=== PATIENT | female | born 1950 | race Two or more races ===

== ENCOUNTER 2017-03-22 00:54 | Observation (INO) | payer OTHER ==
[2017-03-22 01:21] VITALS: BMI 23.3
--- NOTE | 2017-03-22 01:43 | PDOC ---
History of Present Illness - General History Source: Patient Exam Limitations: No Limitations - History of Present Illness Initial Comments: 03/22/17 01:50 The patient is a 66 year old female with no significant past medical history who presents to the ED for few months of increasing right-sided abdominal pain. Patient describes her pain as a sharp cutting sensation, 10/10, and nonradiating that is exacerbated after eating or drinking. Denies nausea, vomiting, or diarrhea. States her pain has been intermittent since her laparoscopic cholecystectomy in April 2016, but has been progressively getting worse. The patient denies fever, chills, cough, SOB, chest pain, and palpitations. Allergies: NKDA Social History: No alcohol, tobacco, or drug use reported. Past Surgical History: cholecystectomy (04/2016) PCP: Dr. Ximena Mariano <Carrie Ferro - Last Filed: 03/22/17 06:03> - General History Source: Patient <Willy Collazo - Last Filed: 03/26/17 19:34> - General Chief Complaint: Pain, Acute Stated Complaint: ABD PAIN Time Seen by Provider: 03/22/17 01:22 Past History <Carrie Ferro - Last Filed: 03/22/17 06:03> - Immunization History Immunization Up to Date: Yes - Psycho/Social/Smoking Cessation Hx Anxiety: No Suicidal Ideation: No Smoking History: Never smoked Have you smoked in the past 12 months: No Information on smoking cessation initiated: No Hx Alcohol Use: No Drug/Substance Use Hx: No Substance Use Type: None Hx Substance Use Treatment: No <Willy Collazo - Last Filed: 03/26/17 19:34> - Past Medical History Allergies/Adverse Reactions: Allergies Allergy/AdvReac Type Severity Reaction Status Date / Time No Known Allergies Allergy Verified 03/22/17 01:18 Home Medications: Ambulatory Orders Acetaminophen [Tylenol .Regular Strength -] 650 mg PO Q6H PRN #0 tablet Review of Systems - Review of Systems Able to Perform ROS?: Yes Comments:: 03/22/17 01:50 CONSTITUTIONAL: Absent: fever, no chills, no fatigue EYES: Absent: visual changes ENT: Absent: ear pain, no sore throat CARDIOVASCULAR: Absent: chest pain, no palpitations RESPIRATORY: Absent: cough, no SOB GI: +right-sided abdominal pain Absent: no nausea, no vomiting, no constipation, no diarrhea GENITOURINARY: Absent: dysuria, no frequency, no hematuria MUSCULOSKELETAL: Absent: back pain, no arthralgia, no myalgia SKIN: Absent: rash NEURO: Absent: headache <Carrie Ferro - Last Filed: 03/22/17 06:03> *Physical Exam - Vital Signs Last Vital Signs Temp Pulse Resp BP Pulse Ox 98.7 F 75 20 143/75 100 03/22/17 01:18 03/22/17 01:18 03/22/17 01:18 03/22/17 01:18 03/22/17 01:18 - Physical Exam Comments: 03/22/17 01:51 GENERAL: Well-appearing, well-nourished. No apparent distress. HEENT: Normocephalic, atraumatic. PERRL, EOM intact. CARDIOVASCULAR: Normal S1, S2. Regular rate and rhythm. PULMONARY: Clear to auscultation bilaterally. ABDOMEN: Soft, non-distended, right upper quadrant tenderness. +rebound. +guarding. Normoactive bowel sounds. EXTREMITIES: Normal ROM in all four extremities. No gross deformities. SKIN: Warm, dry. No rash NEUROLOGICAL: No focal neurological deficits. <Carrie Ferro - Last Filed: 03/22/17 06:03> - Vital Signs Last Vital Signs Temp Pulse Resp BP Pulse Ox 98.7 F 75 20 143/75 100 03/22/17 01:18 03/22/17 01:18 03/22/17 01:18 03/22/17 01:18 03/22/17 01:18 <Willy Collazo - Last Filed: 03/26/17 19:34> ED Treatment Course - LABORATORY CBC & Chemistry Diagram: 03/22/17 02:01 03/22/17 02:01 - RADIOLOGY Radiograph Interpretation: 03/22/17 05:19 Exam: Contrast-enhanced CT abdomen and pelvis Reviewed by Imaging java [email or web address] application developer: Findings: The lung bases are clear. Pneumobilia is noted in the liver. The patient is status post cholecystectomy. Heterogeneous low attenuation is noted in the hepatic parenchyma along the inferior margins of the gallbladder fossa anteriorly. Several patchy nodular opacities are noted adjacent to the hepatic flexure underlying the gallbladder fossa (see image 56 and 57). Adjacent to these opacities in the hepatic flexure the adjacent rectus muscle is focally thickened with peripherally enhancing hypoattenuating foci seen in the rectus muscle measuring up to approximately, which collectively measure approximate 2 x 1.77 cm in diameter and are consistent with an inflamed or infected process in and adjacent to the rectus muscle. Soft tissue fullness extends from the anterior abdominal wall to the distal stomach and proximal duodenum adjacent to surgical clips also a potential source of this inflammatory process. The pancreas is unremarkable. The spleen has a normal appearance. The adrenal glands are unremarkable. Renal hypodensities are noted bilaterally. The kidneys enhance symmetrically. There is no evidence of urinary tract obstruction. The gastrointestinal tract does not appear obstructed. No thickened or dilated bowel is seen. Is no mesenteric infiltration. The uterus is in a neutral position. No adnexal masses are seen. The urinary bladder is unremarkable. No abdominal or pelvic adenopathy is seen. No lytic or blastic destructive osseous lesions are seen. Impression: Inflammatory process in the right rectus muscle with soft tissue stranding and infiltration extending to both the hepatic flexure and distal stomach/proximal duodenum, either of which may be a source of this sinus tract/abscess. <Carrie Ferro - Last Filed: 03/22/17 06:03> - LABORATORY CBC & Chemistry Diagram: 03/22/17 02:01 03/22/17 02:01 <Willy Collazo - Last Filed: 03/26/17 19:34> Medical Decision Making - Medical Decision Making 03/22/17 06:[address] Gabe Ramos (via answering service) Awaiting call back <Carrie Ferro - Last Filed: 03/22/17 06:03> - Medical Decision Making 03/26/17 19:34 Dr. Collazo: The scribe's documentation has been prepared under my direction and personally reviewed by me in its entirery. I confirm that the note above accurately reflects all work, treatment, procedures, and medical decision making performed by me. <Willy Collazo - Last Filed: 03/26/17 19:34> *DC/Admit/Observation/Transfer - Attestations Scribe Attestion: 03/22/17 01:51 Documentation prepared by Carrie Ferro, acting as medical research assistant for Willy Collazo MD/DO. <Carrie Ferro - Last Filed: 03/22/17 06:03> <Willy Collazo - Last Filed: 03/26/17 19:34> Diagnosis at time of Disposition: Abdominal pain Qualifiers: Abdominal location: right upper quadrant Qualified Code(s): R10.11 - Right upper quadrant pain - Discharge Dispostion Disposition: HOME Condition at time of disposition: Stable - Referrals
[2017-03-22] MEDS ORDERED: SODIUM CHLORIDE 1,000 ML IV STA (01:44)
[2017-03-22] MEDS ORDERED: morphine CARPU-JECT 2 MG/1 ML DISP.SYRIN IVPUSH ONE (01:50)
[2017-03-22] MEDS ORDERED: ONDANSETRON 4 MG/2 ML VIAL IVPUSH STA (01:50)
[2017-03-22 02:06] LABS: BASOPHIL 1.4 % (0-2.0); EOSINOPHIL 3.4 % (0-4.5); MCH 27.9 pg (25.7-33.7); MCHC 32.9 g/dl (32.0-36.0); MEAN CELL VOLUME 84.9 fl (80-96); MEAN PLT VOLUME 10.4 fl (7.5-11.1); NEUTROPHILS 40.5 % (42.8-82.8); PLATELET COUNT 189 K/MM3 (134-434); RDW 13.9 % (11.6-15.6); WHITE BLOOD COUNT 7.4 K/mm3 (4.0-10.0)
[2017-03-22] MEDS ORDERED: ONDANSETRON 4 MG/2 ML VIAL ONE (02:09)
[2017-03-22] MEDS ORDERED: morphine CARPU-JECT 4 MG/1 ML DISP.SYRIN ONE (02:09)
[2017-03-22 02:34] LABS: INR 0.89 (0.82-1.09); PROTHROMBIN TIME (PATIENT) 9.8 SEC (9.98-11.88)
[2017-03-22 02:44] LABS: ALBUMIN 3.6 g/dl (3.4-5.0); AMYLASE 53 U/L (25-115); ANION GAP 9 (8-16); BILIRUBIN,TOTAL 0.6 mg/dL (0.2-1.0); CALCIUM 9.1 mg/dL (8.5-10.1); CO2 26 mmol/L (21-32); CREATININE 0.6 mg/dL (0.55-1.02); GLUCOSE,RANDOM 116 mg/dL (74-106); SGPT/ALT 39 U/L (12-78)
[2017-03-22 02:45] LABS: ALK PHOS 133 U/L (45-117); TOT PROT 7.7 g/dl (6.4-8.2)
[2017-03-22 02:46] LABS: MAGNESIUM 2.3 mg/dL (1.8-2.4); SGOT/AST 40 U/L (15-37)
[2017-03-22 04:26] LABS: URINE APPEARANCE CLEAR; URINE BILIRUBIN NEGATIVE (NEGATIVE); URINE BLOOD NEGATIVE (NEGATIVE); URINE COLOR STRAW; URINE GLUCOSE (UA) NEGATIVE (NEGATIVE); URINE KETONE NEGATIVE (NEGATIVE); URINE LEUK ESTERASE NEGATIVE (NEGATIVE); URINE NITRITE NEGATIVE (NEGATIVE); URINE PROTEIN NEGATIVE (NEGATIVE); URINE UROBILINOGEN NEGATIVE E.U./dl (0.2-1.0)
--- NOTE | 2017-03-22 08:03 | PDOC ---
*Physical Exam - Vital Signs Last Vital Signs Temp Pulse Resp BP Pulse Ox 97.9 F 65 18 118/79 99 03/22/17 06:14 03/22/17 06:57 03/22/17 06:57 03/22/17 06:57 03/22/17 06:57 ED Treatment Course - LABORATORY CBC & Chemistry Diagram: 03/22/17 02:01 03/22/17 02:01 - ADDITIONAL ORDERS Additional order review: Laboratory Results 03/22/17 03/22/17 03/22/17 02:01 02:01 01:44 INR 0.89 Sodium 142 Potassium 4.0 Chloride 107 Carbon Dioxide 26 Anion Gap 9 BUN 15 D Creatinine 0.6 Creat Clearance w eGFR > 60 Random Glucose 116 H Calcium 9.1 Magnesium 2.3 Total Bilirubin 0.6 AST 40 H ALT 39 Alkaline Phosphatase 133 H D Total Protein 7.7 Albumin 3.6 D Total Amylase 53 Lipase 339 Urine Color Straw Urine Appearance Clear Urine pH 6.0 Urine Protein Negative Urine Glucose (UA) Negative Urine Ketones Negative Urine Blood Negative Urine Nitrite Negative Urine Bilirubin Negative Urine Urobilinogen Negative Ur Leukocyte Esterase Negative 03/22/17 02:01 RBC 4.80 MCV 84.9 MCHC 32.9 RDW 13.9 MPV 10.4 D Neutrophils % 40.5 L D Lymphocytes % 44.3 H D Monocytes % 10.4 H Eosinophils % 3.4 Basophils % 1.4 - Medications Given in the ED: ED Medications Discontinued Medications Generic Name Dose Route Start Last Admin Trade Name Freq PRN Reason Stop Dose Admin Sodium Chloride 1,000 mls @ 1,000 mls/hr 03/22/17 01:44 03/22/17 02:15 Normal Saline - IV 03/22/17 02:43 1,000 mls/hr ASDIR STA Administration Morphine Sulfate 4 mg 03/22/17 01:50 03/22/17 02:15 Morphine Injection - IVPUSH 03/22/17 01:51 4 mg ONCE ONE Administration Ondansetron HCl 4 mg 03/22/17 01:50 03/22/17 02:15 Zofran Injection IVPUSH 03/22/17 01:51 4 mg ONCE STA Administration Medical Decision Making - Medical Decision Making 03/22/17 08:00 I have received this patient on sign out at 710 am 66 yo F presenting to the ER with a complaint of abdominal pain No fevers or chills CT demonstrates stranding and pneumobilia Case reviewed by night team with Dr Mercado who requested MRCP I have contacted Rea Deshaun re: obtaining MRCP She states pt should be admitted Case reviewed with Dr Matthews Will place pt on observation Can up triage to admission *DC/Admit/Observation/Transfer Diagnosis at time of Disposition: Abdominal pain Qualifiers: Abdominal location: right upper quadrant Qualified Code(s): R10.11 - Right upper quadrant pain - Discharge Dispostion Condition at time of disposition: Stable Admit: Yes - Referrals Referrals: Ximena Mariano MD [Primary Care Provider] - - Patient Instructions - Post Discharge Activity
[2017-03-22] MEDS ORDERED: morphine CARPU-JECT 2 MG/1 ML DISP.SYRIN IVPUSH PRN ×2 (10:48→16:13)
[2017-03-22] MEDS: SODIUM CHLORIDE 1,000 ML IV SCH (11:25)
--- NOTE | 2017-03-22 12:38 | PN ---
Teaching Attending Note Name of Resident: Reina Varela ATTENDING PHYSICIAN STATEMENT I saw and evaluated the patient. I reviewed the resident's note and discussed the case with the resident. I agree with the resident's findings and plan as documented. SUBJECTIVE:66yo F c/o R flank pain x several months. states it started after JUAN A drain was removed s/p lap cholecystectomy in Apr 2016. she states its a tearing like pain that come intermittently. not related to position or eating. resolves with tylenol. has not seeked medical attention about this. similar like pain when had the pain from acute choley however that was more severe. denies Cp, SOB ,fever, chills, N/V/C/D OBJECTIVE: Last Vital Signs Temp Pulse Resp BP Pulse Ox 97.9 F 69 16 122/77 98 03/22/17 10:00 03/22/17 10:00 03/22/17 10:00 03/22/17 10:00 03/22/17 10:00 General NAD CV S1 S2 RRR no murmur/rub/gallop Lungs CTA B/L no wheezing/rales/rhonchi Abdomen soft +point tenderness on R flank along surgical scar. negative calzada sign, negative mcburney point normoactive BS. no rebound or guarding ASSESSMENT AND PLAN: 66yo F with PMH significant for s/p laprascopic cholecystectomy 04/2016 presented to the ER with abdominal pain 1. Abdominal pain- observation. started on IVF and pain control. MRCP ordered. CT images reviewed. no abscess seen. spoke with surgeon. high suspicion pain is related to trochar track site vs adhesions. will wait for MRCP to confirm no CBD involvement. low suspicion for acute infectious pathology as pt is afebrile , no leukocytosis and pain has been for almost 1 year and pt would be septic at this point. pain control 2. DVT ppx- EAM
--- NOTE | 2017-03-22 13:38 | HP ---
CHIEF COMPLAINT: Right Abdominal Pain PCP: Dr. Ximena Mariano HISTORY OF PRESENT ILLNESS: Patient is a 66 year old female with a PMHx of laprascopic cholecystecomy (2015) of right mid abdominal pain that has been persistent since April of 2016 after JUAN A drain was removed last year s/p laparoscopic cholecystectomy. Patient states the pain is nonradiating, sharp in nature and it feels like someone is cutting through her stomach with no exacerbating factors. Patient states sometimes when she eats the pain mildly increases. The pain however sometimes resolves with Extra strength Tylenol. The pain at its worst is 10/10 and the best 3/10. The last week the pain has been increasing and last night the pain worsened without relief of pain from the Tylenol, which prompted this ED visit. Otherwise, patient denies any NSAID use. She denies ever having a colonoscopy. Patient denies fever, chills, nausea, vomiting, diarrhea, constipation, chest pain, palpitations, shortness of breath. ER course was notable for: (1)CT abdomen/pelvis (2)Morphine 4mg (3)Zofran 4mg Recent Travel:Came back from [place] this week PAST MEDICAL HISTORY: Denies PAST SURGICAL HISTORY: Sphincterectomy 2015, Laprascopic Cholecystectomy (2015) Social History: Smoking:Denies Alcohol:Denies Drugs: Denies Family History: Non-contributory Allergies: No Known Allergies Allergy (Verified 03/22/17 01:18) HOME MEDICATIONS: Home Medications Medication Instructions Recorded NK [No Known Home Medication] 03/22/17 REVIEW OF SYSTEMS CONSTITUTIONAL: Absent: fever, chills, diaphoresis, generalized weakness, malaise, loss of appetite, weight change HEENT: Absent: rhinorrhea, nasal congestion, throat pain, throat swelling, difficulty swallowing, mouth swelling, ear pain, eye pain, visual changes CARDIOVASCULAR: Absent: chest pain, syncope, palpitations, irregular heart rate, lightheadedness , peripheral edema RESPIRATORY: Absent: cough, shortness of breath, dyspnea with exertion, orthopnea, wheezing, stridor, hemoptysis GASTROINTESTINAL: abdominal pain Absent: abdominal distension, nausea, vomiting, diarrhea, constipation, melena, hematochezia GENITOURINARY: Absent: dysuria, frequency, urgency, hesitancy, hematuria, flank pain, genital pain MUSCULOSKELETAL: Absent: myalgia, arthralgia, joint swelling, back pain, neck pain SKIN: Absent: rash, itching, pallor HEMATOLOGIC/IMMUNOLOGIC: Absent: easy bleeding, easy bruising, lymphadenopathy, frequent infections ENDOCRINE: Absent: unexplained weight gain, unexplained weight loss, heat intolerance, cold intolerance NEUROLOGIC: Absent: headache, focal weakness or paresthesias, dizziness, unsteady gait, seizure, mental status changes, bladder or bowel incontinence PSYCHIATRIC: Absent: anxiety, depression, suicidal or homicidal ideation, hallucinations. PHYSICAL EXAMINATION Vital Signs - 24 hr 03/22/17 03/22/17 08:20 10:00 Temperature 97.9 F Pulse Rate [ 61 69 Right] Respiratory 18 16 Rate Blood Pressure 123/72 122/77 [Arm] O2 Sat by Pulse 98 98 Oximetry (%) GENERAL: Awake, alert, and fully oriented, in no acute distress. HEAD: Normal with no signs of trauma. EYES: Pupils equal, round and reactive to light, extraocular movements intact, sclera anicteric, conjunctiva clear. EARS, NOSE, THROAT:Moist mucous membranes. NECK: Supple without lymphadenopathy, JVD, or masses. LUNGS: Breath sounds equal, clear to auscultation bilaterally. No wheezes, and no crackles. No accessory muscle use. HEART: Regular rate and rhythm, normal S1 and S2 without murmur, rub or gallop. ABDOMEN: Soft, tenderness upon palpation of the right midabdominal area near surgical scar. No guarding or rebound, normoactive bowel sounds, no hepatosplenomegaly UPPER EXTREMITIES: 2+ pulses, warm, well-perfused. No cyanosis. No clubbing. No peripheral edema. LOWER EXTREMITIES: 2+ pulses, warm, well-perfused. No calf tenderness. No peripheral edema. NEUROLOGICAL: Normal speech. No focal neuro deficits. No facial droop PSYCHIATRIC: Cooperative. Good eye contact. Appropriate mood and affect. SKIN: Warm, dry, normal turgor, no rashes or lesions noted, normal capillary refill. Laboratory Results - last 24 hr 03/22/17 03/22/17 03/22/17 01:44 02:01 02:01 WBC 7.4 D RBC 4.80 Hgb 13.4 D Hct 40.7 MCV 84.9 MCHC 32.9 RDW 13.9 Plt Count 189 D MPV 10.4 D Neutrophils % 40.5 L D Lymphocytes % 44.3 H D Monocytes % 10.4 H Eosinophils % 3.4 Basophils % 1.4 INR 0.89 Sodium Potassium Chloride Carbon Dioxide Anion Gap BUN Creatinine Creat Clearance w eGFR Random Glucose Calcium Magnesium Total Bilirubin AST ALT Alkaline Phosphatase Total Protein Albumin Total Amylase Lipase Urine Color Straw Urine Appearance Clear Urine pH 6.0 Ur Specific [place] 1.010 Urine Protein Negative Urine Glucose (UA) Negative Urine Ketones Negative Urine Blood Negative Urine Nitrite Negative Urine Bilirubin Negative Urine Urobilinogen Negative Ur Leukocyte Esterase Negative 03/22/17 02:01 WBC RBC Hgb Hct MCV MCHC RDW Plt Count MPV Neutrophils % Lymphocytes % Monocytes % Eosinophils % Basophils % INR Sodium 142 Potassium 4.0 Chloride 107 Carbon Dioxide 26 Anion Gap 9 BUN 15 D Creatinine 0.6 Creat Clearance w eGFR > 60 Random Glucose 116 H Calcium 9.1 Magnesium 2.3 Total Bilirubin 0.6 AST 40 H ALT 39 Alkaline Phosphatase 133 H D Total Protein 7.7 Albumin 3.6 D Total Amylase 53 Lipase 339 Urine Color Urine Appearance Urine pH Ur Specific [place] Urine Protein Urine Glucose (UA) Urine Ketones Urine Blood Urine Nitrite Urine Bilirubin Urine Urobilinogen Ur Leukocyte Esterase IMAGES: CT Abdomen/Pelvis (03/22/17): The lung bases are clear. Pneumobilia is noted in the liver. The patient is status post cholecystectomy. Heterogeneous low attenuation is noted in the hepatic parenchyma along the inferior margins of the gallbladder fossa anteriorly. Several patchy nodular opacities are noted adjacent to the hepatic flexure underlying the gallbladder fossa (see image 56 and 57). Adjacent to these opacities in the hepatic flexure the adjacent rectus muscle is focally thickened with peripherally enhancing hypoattenuating foci seen in the rectus muscle measuring up to approximately, which collectively measure approximate 2 x 1.77 cm in diameter and are consistent with an inflamed or infected process in and adjacent to the rectus muscle. Soft tissue fullness extends from the anterior abdominal wall to the distal stomach and proximal duodenum adjacent to surgical clips also a potential source of this inflammatory process. The pancreas is unremarkable. The spleen has a normal appearance. The adrenal glands are unremarkable. Renal hypodensities are noted bilaterally. The kidneys enhance symmetrically. There is no evidence of urinary tract obstruction. The gastrointestinal tract does not appear obstructed. No thickened or dilated bowel is seen. Is no mesenteric infiltration. The uterus is in a neutral position. No adnexal masses are seen. The urinary bladder is unremarkable. No abdominal or pelvic adenopathy is seen. No lytic or blastic destructive osseous lesions are seen. Impression: Inflammatory process in the right rectus muscle with soft tissue stranding and infiltration extending to both the hepatic flexure and distal stomach/proximal duodenum, either of which may be a source of this sinus tract/abscess. ASSESSMENT/PLAN: Patient is a 66 year old female with a PMHx of Laprascopic cholecystecomty complicated with JUAN A drainage placement who presented for continuous right abdominal pain s/p removal of JUAN A drainage april of 2016. CT abdomen and Pelvis done which revealed pneumobilia in liver and inflammatory process in the right rectus muscle with soft tissue stranding. Patient admitted for further monitoring and management. Abdominal Pain -On IV Normal saline 75mls/hr -Morphine 1mgQ4H PRN for pain and Tylenol 650mg Q6H -Dr. Mercado consulted who recommended MRCP to rule out choledocholithiasis and possible trochar track site vs adhesions. -MRCP pending -Advance diet as tolerated F/E/N -IV Normal saline @75mls/hr -Electrolytes wnl -Vegetarian diet Prophylaxis -Low risk. Ambulates. SCD's for DVT -No GI prophylaxis indicated Disposition -Full code -Awaiting MRCP. If negative may discharge and follow up with Dr. Mercado Visit type - Emergency Visit Emergency Visit: Yes ED Registration Date: 03/22/17 Care time: The patient presented to the Emergency Department on the above date and was hospitalized for further evaluation of their emergent condition. - New Patient This patient is new to me today: Yes Date on this admission: 03/22/17 - Critical Care Critical Care patient: No
[2017-03-22] MEDS: ACETAMINOPHEN 325 MG TABLET (FP) PO PRN (17:55)
--- NOTE | 2017-03-22 18:29 | CONSULT ---
Consult Consult Specialty:: Surgery Reason for Consultation:: Abdominal pain in right upper quadrant. - History of Present Illness Chief Complaint: Abdominal pain in right upper quadrant, since karen cholecystectomy in April 2016. She was operated by Dr. Mercado. - History Source History Provided By: Patient Limitations to Obtaining History: No Limitations - Alcohol/Substance Use Hx Alcohol Use: No - Smoking History Smoking history: Never smoked Have you smoked in the past 12 months: No Home Medications - Allergies Allergies/Adverse Reactions: Allergies Allergy/AdvReac Type Severity Reaction Status Date / Time No Known Allergies Allergy Verified 03/22/17 01:18 - Home Medications Home Medications: Ambulatory Orders NK [No Known Home Medication] 03/22/17 Review of Systems - Review of Systems Gastrointestinal: reports: Abdominal Pain (Pain in right upper quadrant of abdomen.) Physical Exam Vital Signs: Vital Signs Temperature 98 F 03/22/17 11:30 Pulse Rate 59 L 03/22/17 11:30 Respiratory Rate 18 03/22/17 11:30 Blood Pressure 120/76 03/22/17 11:30 O2 Sat by Pulse Oximetry (%) 98 03/22/17 10:00 Gastrointestinal: Yes: Tenderness (Tender in right upper quadrant of abdomen.) Imaging - Results Cat Scan: Report Reviewed (? Abscess in the rectus, and subhepatic location . ? fistula , and pneumobilia.) Problem List - Problems (1) Abdominal pain Code(s): R10.9 - UNSPECIFIED ABDOMINAL PAIN Qualifiers: Abdominal location: right upper quadrant Qualified Code(s): R10.11 - Right upper quadrant pain (2) Pneumobilia Code(s): K83.8 - OTHER SPECIFIED DISEASES OF BILIARY TRACT (3) Subphrenic fluid collection Code(s): R18.8 - OTHER ASCITES Assessment/Plan ? Biliary fistula, Suggest : Notify Dr. Mercado , the primary surgeon. MRI is requested . Antibiotics. G.I follow up.
[2017-03-23] MEDS: SODIUM CHLORIDE 1,000 ML IV SCH (01:33)
[2017-03-23] MEDS: ACETAMINOPHEN 325 MG TABLET (FP) PO PRN (08:25)
--- NOTE | 2017-03-23 09:06 | DS ---
Physical Exam: SUBJECTIVE: Patient seen and examined. Continues to c/o abdominal pain, which is controlled with Tylenol. Declined AM labs. no vomiting, no fevers overnight or this morning. OBJECTIVE: Vital Signs Period Temp Pulse Resp BP Sys/Paez Pulse Ox Last 24 Hr 97.9 F-98.7 F 58-69 16-18 103-130/47-86 98 PHYSICAL EXAM GENERAL: The patient is awake, alert, and fully oriented, in no acute distress. EYES: PERRL, extraocular movements intact, sclera anicteric, conjunctiva clear. ENT: Ears normal, nares patent, oropharynx clear without exudates, moist mucous membranes, no LAD LUNGS: Breath sounds equal, clear to auscultation bilaterally, no wheezes, no crackles, no accessory muscle use. HEART: Regular rate and rhythm, S1, S2 without murmur, rub or gallop. ABDOMEN: Soft, tender to palpation in +gaurding in right medial quadrant ( medial to lap-cristal insertion site), obturator and psoas' sign negative b/l, nondistended, normoactive bowel sounds, , no rebound, no masses. well-healed port sites without erythema, skin intact. EXTREMITIES: 2+ dp and radial pulses, warm, well-perfused, no edema. +crepitus in right knee NEUROLOGICAL: Cranial nerves II through XII grossly intact. Normal speech, gait normal LABS Laboratory Tests 03/22/17 03/22/17 03/22/17 01:44 02:01 02:01 WBC 7.4 D Hgb 13.4 D Hct 40.7 Plt Count 189 D Neutrophils % 40.5 L D Lymphocytes % 44.3 H D Monocytes % 10.4 H Sodium 142 Potassium 4.0 BUN 15 D Creatinine 0.6 Creat Clearance w eGFR > 60 Random Glucose 116 H AST 40 H ALT 39 Alkaline Phosphatase 133 H D Albumin 3.6 D Total Amylase 53 Lipase 339 Urine Blood Negative Urine Nitrite Negative Ur Leukocyte Esterase Negative Imaging CT scan: Inflammatory changes and suspected small abscesses anterior and inferior to the gallbladder fossa. This inflammatory process extends into the right rectus abdominous muscle with additional small abscesses are suspected. Fistulous tract from the duodenum or hepatic flexure cannot be excluded. MRCP: As noted on CT contiguous 0.7 and 0.3 cm enhancing spherical lesions suggestive of abscesses are noted adjacent to the ventral inferior aspect of the gallbladder fossa. There is also an approximately 3 cm rim-enhancing focus suggestive of abscess formation within the overlying right rectus abdominous muscle. Increased focal enhancement is seen within the liver abutting the gallbladder fossa consistent with hyperemia. HOSPITAL COURSE: 66 year old female with a PMHx of Laprascopic cholecystecomty complicated with JUAN A drainage placement who presented for continuous right abdominal pain s/p removal of JUAN A drainage april of 2016. CT abdomen and pelvis revealed pneumobilia in liver and inflammatory process in the right rectus muscle with soft tissue stranding. MRCP result summarized above. She remained afebrile, without leucocytosis, normotensive, tolerated diet well and had non-bloody bm without difficulty. Dr. Mercado was notified of the imaging results. He recommends outpatient follow-up in his office. Pain control was achieved with oral tylenol. She was discharged with instructions on safe tylenol limits, follow-up information with Dr. Mercado and Dr. Castellanos in one week for outpatient follow-up. Date of Admission:03/22/17 - Date of Discharge: 03/23/17 Minutes to complete discharge: 37 Discharge Summary Reason For Visit: ABD PAIN Current Active Problems Abdominal pain (Acute) Pneumobilia (Acute) Subphrenic fluid collection (Acute) Condition: Stable - Instructions Diet, Activity, Other Instructions: Follow-up with Dr. Mercado in one week and Dr. Castellanos in one week. Take tylenol for your pain, follow the instructions provided about taking the safe amount. If you develop a fever, chest pain, difficulty breathing, vomiting blood or any new symptoms, return to the hospital. Referrals: Gabe Mercado MD [Staff Physician] - 1 Week Ximena Mariano MD [Primary Care Provider] - 1 Week Disposition: HOME - Home Medications Comprehensive Discharge Medication List: Ambulatory Orders Acetaminophen [Tylenol .Regular Strength -] 650 mg PO Q6H PRN #0 tablet This patient is new to me today: Yes Date on this admission: 03/23/17 Emergency Visit: No Critical Care patient: No - Discharge Referral Referred to [facility] Med P.C.: No
--- NOTE | 2017-03-23 10:15 | PN ---
Teaching Attending Note Name of Resident: Anjel Stein ATTENDING PHYSICIAN STATEMENT I saw and evaluated the patient. I reviewed the resident's note and discussed the case with the resident. I agree with the resident's findings and plan as documented. SUBJECTIVE:pain improved with tylenol. tolerated diet. denies CP, SOB,fever, chills, N/V/C/D OBJECTIVE: Last Vital Signs Temp Pulse Resp BP Pulse Ox 98.4 F 61 18 130/86 98 03/23/17 06:01 03/23/17 06:01 03/23/17 06:01 03/23/17 06:01 03/22/17 10:00 General NAD CV S1 S2 RRR no murmur/rub/gallop Lungs CTA B/L no wheezing/rales/rhonchi Abdomen soft +point tenderness on R flank along surgical scar. negative calzada sign, negative mcburney point normoactive BS. no rebound or guarding ASSESSMENT AND PLAN: 66yo F with PMH significant for s/p laprascopic cholecystectomy 04/2016 presented to the ER with abdominal pain 1. Abdominal pain-stable. MRCP done showing some small abscesses with angulation of the CBD. Dr Montoya aware and will follow up in the office. suggested to pt to repeat CBC to ensure no leukocytosis which she refused. she has been afebrile since admission. tolerated diet. instructed pt to call Dr Montoya office on saturday morning for appt for follow up and plan to alleviate the pain. cont tylenol as needed. no indication for abx at this time per Dr Montoya 2. DVT ppx- EAM
[2017-03-23 11:36] VITALS: BP 149/78; PULSE 68; TEMP 98.6
== END 2017-03-23 10:25 | disposition home or self-care (01) ==
LOC: JER 00:54 → JERBED 08:18 → J7W 10:14
PROVIDERS: ADMIT Internal Medicine; ATTEND Internal Medicine
PROC: 3E033GC Introduction of Other Therapeutic Substance into Peripheral Vein, Percutaneous Approach (ICD-10-PCS; principal; 2017-03-22)
PROC: 3E0337Z Introduction of Electrolytic and Water Balance Substance into Peripheral Vein, Percutaneous Approach (ICD-10-PCS; 2017-03-22)
DX: R10.11 Right upper quadrant pain (principal); K83.8 Other specified diseases of biliary tract; R18.8 Other ascites
CPT/HCPCS: 36415; 74177-TC; 74183-TC; 80053; 81003; 82150; 83690; 83735; 85025; 85610; 99283-25; G0378